=== PATIENT | female | born 1970 | race Caucasian/White ===

== ENCOUNTER → 2016-08-06 | Outpatient (CLI) | payer BC ==
[~2016-08-06] MED LIST: ALEVE220 M1 PO; CEPHALEXIN500 M1 PO; EFFEXOR37.5 MG PO; FLEXERIL10 MG PO; HYDROXYZINE HCL10 MG PO; MEDROL PO; NAPROXEN375 MG PO; NEURONTIN100 MG PO; TAMIFLU75 MG PO
--- NOTE | ~2016-08-06 | CT2 ---
[facility] A Service of [facility] RADIOLOGY TEXT RESULTS PATIENT: MARCIA VILLALBA LOCATION: [facility] : 72 UNIT #: [id number] AGE: [address]: Alicja Lechuga MD SEX: F ORDER DR: [id number] [address] [address] [id number] O MR#: [id number] Acc #: [id number] NAME: MARCIA VILLALBA : 1970 SEX: F STUDY DATE/TIME: 08/06/2016 13:19 UNIT: [facility] ROOM: STUDY DESCRIPTION: CT Abd and Pelv W Cont Attending Physician: Alicja Lechuga M.D. Referring Physician: Alicja Lechuga M.D. Ordering Physician: Alicja Lechuga M.D. Primary Care Physician: Alicja Lechuga M.D. MEDICAL IMAGING REPORT This report is preliminary unless electronic signature is present. EXAM CT of the abdomen and pelvis with contrast 08/06/2016 HISTORY Left lower quadrant pain for [address] images were obtained from dome of the diaphragm through symphysis pubis following the administration of oral and intravenous contrast material. This CT exam was performed with one or more of the following radiation dose reduction techniques: automatic exposure control, adjustment of mA and/or kV according to patient size, and iterative reconstruction. FINDINGS Images through the lung bases are clear. Liver and gallbladder are normal as are the spleen, stomach, proximal small bowel and pancreas. There is a somewhat globular appearance to the right adrenal gland. Small nodule is not excluded. Kidneys are normal in appearance. The appendix is visualized and is within normal limits. Uterus and urinary bladder appear normal. Patient does have colonic diverticulosis but I do not see any convincing evidence of diverticulitis on the current study. No free fluid or adenopathy is seen within the pelvis. Review of bony windows does not demonstrate any aggressive osseous abnormalities. IMPRESSION 1. No definite acute intraabdominal intrapelvic process is identified to account for the patient's symptomatology. While the patient does [facility] A Service of [facility] RADIOLOGY TEXT RESULTS PATIENT: MARCIA VILLALBA LOCATION: [facility] : 72 UNIT #: [id number] AGE: [address]: Alicja Lechuga MD SEX: F ORDER DR: have colonic diverticulosis I do not see any evidence of diverticulitis on the current exam. 2. 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 1. Dictated by... Leesa Jang M.D. THIS IS AN ELECTRONICALLY VERIFIED REPORT Leesa Jang M.D. at 08/06/2016 4:51 PM HUSSEIN/chepe TD: 08/06/2016 16:46 JOB #: [id number] MEDICAL IMAGING REPORT Page 1 of 1
== END | disposition home or self-care (01) ==
LOC: SCT 10:47
DX: R10.9 Unspecified abdominal pain (principal); K57.30 Diverticulosis of large intestine without perforation or abscess without bleeding
CPT/HCPCS: 74177; Q9967

== ENCOUNTER → 2016-08-31 | Day surgery (SDC) | payer BC ==
--- NOTE | ~2016-08-31 | OR ---
Unit #: [id number] #: [id number] Patient: MARCIA VILLALBA [id number] [facility] [address] [place], [place] [address] [id number] O MR#: [id number] NAME: MARCIA VILLALBA ROOM: Date of Procedure: 08/31/2016 Admission Date: 08/31/2016 Surgeon: Leonard Siddiqui M.D. : 1970 Attending Physician: Leonard Siddiqui M.D. Primary Care Physician: Alicja Lechuga M.D. OPERATIVE REPORT PREOPERATIVE DIAGNOSIS Sebaceous cyst, left posterior shoulder. POSTOPERATIVE DIAGNOSIS Sebaceous cyst, left posterior shoulder. PROCEDURE PERFORMED Excisional biopsy of 3.8 cm sebaceous cyst, left posterior shoulder. ANESTHESIA General endotracheal anesthesia. ESTIMATED BLOOD LOSS Less than 20 mL. INDICATIONS FOR PROCEDURE A 46-year-old female, initially presented to the office in 03/2016 with a sebaceous cyst over the shoulder. At that time, because it was benign, she wanted to just observe it. Recently, it is markedly enlarged and now she presents with a 3.8 cm sebaceous cyst with some evidence of intracystic abscess. DESCRIPTION OF PROCEDURE The patient was admitted to [facility]. [facility], positively identified, and transported to the operating room, and after induction of general endotracheal anesthesia, she was placed in a lateral position with the arm and shoulder positioned and fixed. She received IV vancomycin. She was prepped and draped in usual sterile fashion. A wide wedge excision around the lesion was made and it was dissected out circumferentially with a cuff of normal tissue not entering into the cyst or its contents. We then irrigated the soft tissue with saline and Betadine and ensured good hemostasis. The subcutaneous tissues were reapproximated with 3-0 Vicryl interrupted suture and the skin was reapproximated with 4-0 nylon vertical mattress sutures. Neosporin was placed along the suture line. Telfa and Tegaderm were placed as an occlusive dressing. Sponges and needle counts were correct x3. The patient tolerated the procedure well and transported to recovery in stable condition. Findings and postoperative instructions were discussed with her . Dictated by... Unit #: [id number] #: [id number] Patient: MARCIA VILLALBA Tete Multani/shelli TD: 09/01/2016 01:41 JOB #: [id number] OPERATIVE REPORT Page 1 of 1 X Leonard Siddiqui MD PROCEDURE OPERATIVE NOTE
== END | disposition home or self-care (01) ==
LOC: CSUR 09:57
DX: L72.0 Epidermal cyst (principal); M19.90 Unspecified osteoarthritis, unspecified site
CPT/HCPCS: 84703; 88304; J2250; J2405; J3010; J3370